=== PATIENT | female | born 1995 | race Caucasian/White ===

== ENCOUNTER 2017-04-20 16:37 | Emergency (ER) | payer MEDICAID ==
[~2017-04-20 16:37] MED LIST: COL100 PO; KEFLEX250 MG PO; LAC PO; MOTRIN800 MG PO
[2017-04-20 19:15] LABS: CALCIUM 8.6 mg/dL (8.5-10.1); CARBON DIOXIDE 25.1 mmol/L (21-32); CHLORIDE SERUM 104 mmol/L (98-107); CREATININE SERUM 0.6 mg/dL (0.6-1.0); GFR1 > 60 mL/min; GLUCOSE SERUM 83 mg/dL (74-106); POTASSIUM SERUM 3.1 mmol/L (3.5-5.1); SODIUM SERUM 137 mmol/L (136-145)
[2017-04-20 19:25] LABS: ALKALINE PHOSPHATASE 60 U/L (46-116); ALT/SGPT 18 U/L (14-59); AST/SGOT 13 U/L (15-37); BILIRUBIN TOTAL 0.58 mg/dL (0.20-1.00); TOTAL PROTEIN, SERUM 7.4 g/dL (6.4-8.2)
[2017-04-20 19:26] LABS: ALBUMIN 3.1 g/dL (3.4-5.0)
[2017-04-20 19:30] LABS: BASOPHIL % 0.2 % (0-2); PLATELET COUNT 293 x10^3mcL (130-400)
[2017-04-20 19:31] LABS: RED CELL DISTRIBUTION WIDTH 17.9 % (11.5-14.5)
[2017-04-20 20:50] VITALS: BP 100/62
== END 2017-04-20 20:48 | disposition home or self-care (01) ==
LOC: ED 16:37
PROVIDERS: Emergency Medicine
DX: O99.281 Endocrine, nutritional and metabolic diseases complicating pregnancy, first trimester (principal); O99.011 Anemia complicating pregnancy, first trimester; E87.6 Hypokalemia; D50.9 Iron deficiency anemia, unspecified; Z3A.13 13 weeks gestation of pregnancy
CPT/HCPCS: 36415

== ENCOUNTER 2018-04-25 23:02 | Emergency (ER) | payer MEDICAID ==
[~2018-04-25] VITALS: Ht 160 cm; Wt 87.1 kg
[2018-04-25 23:42] VITALS: Ht 160 cm; Wt 87.1 kg
[2018-04-26 02:39] VITALS: BP 107/73
== END 2018-04-26 02:39 | disposition home or self-care (01) ==
LOC: ED 23:02
DX: F43.0 Acute stress reaction (principal)